=== PATIENT | female | born 1965 | race Caucasian/White ===

== ENCOUNTER 2022-07-08 11:01 | Outpatient (REF) | payer OTHER, SELFPAY ==
--- NOTE | ~2022-07-08 | XR_ITS ---
EXAMINATION: XR LUMBAR SPINE 6VW BENDING, XR SACROILIAC JOINT MIN 3V CLINICAL INFORMATION: Radiculopathy, lumbar region. Sacrococcygeal disorder COMPARISON: None TECHNIQUE: AP and lateral views of the lumbar spine with an additional coned down lateral spot view of the lumbosacral junction. Flexion and extension lateral views of the lumbar spine. Bilateral oblique views of the lumbar spine. AP and bilateral oblique views of the sacroiliac joints. FINDINGS: There is sclerosis on both sides of the left sacroiliac joint suggesting unilateral sacroiliitis. Sacroiliac joints are patent. No erosions seen. Hip joint spaces are maintained. No acute osseous abnormality. Right upper quadrant cholecystectomy clips. Nonobstructive abdominal bowel gas pattern. There are diminutive 12th ribs with 4 nonrib-bearing lumbar type vertebral bodies. Normal sagittal alignment. No malalignment induced with flexion or extension. There is loss of disc height at L5-S1 with mild anterior osteophytosis L3-4, L4-5, and L5-S1. There is lower lumbar facet arthropathy. No definite pars defects. XR/XR lumbar spine 6V w bending IMPRESSION: Sclerosis on both sides of the left sacroiliac joint suggesting unilateral sacroiliitis. Diminutive 12th ribs with 4 nonrib-bearing lumbar type vertebral bodies. Degenerative changes of the lumbar spine as described above.
--- NOTE | ~2022-07-08 | XR_ITS ---
EXAMINATION: XR LUMBAR SPINE 6VW BENDING, XR SACROILIAC JOINT MIN 3V CLINICAL INFORMATION: Radiculopathy, lumbar region. Sacrococcygeal disorder COMPARISON: None TECHNIQUE: AP and lateral views of the lumbar spine with an additional coned down lateral spot view of the lumbosacral junction. Flexion and extension lateral views of the lumbar spine. Bilateral oblique views of the lumbar spine. AP and bilateral oblique views of the sacroiliac joints. FINDINGS: There is sclerosis on both sides of the left sacroiliac joint suggesting unilateral sacroiliitis. Sacroiliac joints are patent. No erosions seen. Hip joint spaces are maintained. No acute osseous abnormality. Right upper quadrant cholecystectomy clips. Nonobstructive abdominal bowel gas pattern. There are diminutive 12th ribs with 4 nonrib-bearing lumbar type vertebral bodies. Normal sagittal alignment. No malalignment induced with flexion or extension. There is loss of disc height at L5-S1 with mild anterior osteophytosis L3-4, L4-5, and L5-S1. There is lower lumbar facet arthropathy. No definite pars defects. XR/XR sacroiliac joint min 3V IMPRESSION: Sclerosis on both sides of the left sacroiliac joint suggesting unilateral sacroiliitis. Diminutive 12th ribs with 4 nonrib-bearing lumbar type vertebral bodies. Degenerative changes of the lumbar spine as described above.
== END 2022-07-08 11:02 | disposition home or self-care (01) ==
LOC: HO.XRAY 11:01
PROVIDERS: PCP Internal Medicine; Visit Provider Nurse Practitioner Family
DX: M47.26 Other spondylosis with radiculopathy, lumbar region (principal); M53.3 Sacrococcygeal disorders, not elsewhere classified; M51.36 Other intervertebral disc degeneration, lumbar region; M46.1 Sacroiliitis, not elsewhere classified
CPT/HCPCS: 72114; 72202; 99202

== ENCOUNTER 2022-07-22 13:47 | Outpatient (REF) | payer OTHER, SELFPAY ==
--- NOTE | ~2022-07-22 | MR_ITS ---
EXAMINATION: MR LUMBAR SPINE WITHOUT CONTRAST CLINICAL INFORMATION: Lumbar radiculopathy. COMPARISON: Lumbar spine radiographs from 07/08/2022. TECHNIQUE: MRI of the lumbar spine was obtained using routine sequences without contrast. FINDINGS: Mild degenerative anterolisthesis of T12 on L1. Minimal degenerative retrolistheses of L3 on L4 and L5 on S1. Otherwise, normal anatomic alignment. Advanced degenerative disc disease at L5-S1. Moderate degenerative disc disease at T11-T12, T12-L1, and L3-L4. Mild degenerative disc disease at all additional lumbar levels. Associated mixed Modic type discogenic endplate changes including mild Modic type I discogenic edema at T12-L1 and L5-S1. No additional suspicious marrow edema. Small Schmorl's nodes at T11-T12, T12-L1, and L5-S1. Otherwise, the vertebral body heights are largely maintained. The conus medullaris terminates at the level of L1. The distal spinal cord is normal in appearance. No significant abnormalities of the paraspinal musculature. Limited evaluation of the intra-abdominal structures without significant abnormalities. The abdominal aorta is of normal contour and caliber. AXIAL SPINAL LEVELS: T12-L1: Mild diffuse disc bulge. There is mild bilateral facet joint arthropathy. There is no neural foraminal stenosis. There is no spinal canal stenosis. L1-L2: Normal annular contour. There is mild bilateral facet joint arthropathy. There is no neural foraminal stenosis. There is no spinal canal stenosis. L2-L3: Shallow diffuse disc bulge. There is moderate bilateral facet joint arthropathy. There is no neural foraminal stenosis. There is no spinal canal stenosis. L3-L4: Mild diffuse disc bulge. There is moderate right and mild left facet joint arthropathy. There is mild right and no left neural foraminal stenosis. There is narrowing of the subarticular zones with no overt spinal canal stenosis centrally. L4-L5: Mild to moderate diffuse disc bulge. There is moderate bilateral facet joint arthropathy. There is moderate left worse than right neural foraminal stenosis. There is stenosis of the subarticular zones with no overt spinal canal stenosis centrally. L5-S1: Moderate diffuse disc bulge. There is moderate bilateral facet joint arthropathy. There is moderate to severe bilateral neural foraminal stenosis. There is stenosis of the left worse than right subarticular zones with mild spinal canal stenosis centrally. MR/MR lumbar spine wo con IMPRESSION: Moderate multilevel degenerative spondyloarthropathy of the lumbar spine as described in detail above. Most notably, there is mild spinal canal stenosis at L5-S1. Narrowing/stenoses of the subarticular zones from L3-S1. Moderate to severe neural foraminal stenoses at L4-L5 and L5-S1.
== END 2022-07-22 13:48 | disposition home or self-care (01) ==
LOC: HO.MRI 13:47
PROVIDERS: PCP Internal Medicine; Visit Provider Nurse Practitioner Family
DX: M46.1 Sacroiliitis, not elsewhere classified (principal); M47.816 Spondylosis without myelopathy or radiculopathy, lumbar region; M51.36 Other intervertebral disc degeneration, lumbar region; M54.16 Radiculopathy, lumbar region
CPT/HCPCS: 72148

== ENCOUNTER → 2022-07-24 14:02 | Outpatient (BNVA) | payer OTHER, SELFPAY | PROVIDERS: PCP Internal Medicine; Visit Provider Nurse Practitioner Family | DX: Z13.89 Encounter for screening for other disorder (principal) ==

== ENCOUNTER 2022-08-14 11:18 | Day surgery (SDC) | payer OTHER, SELFPAY ==
[2022-08-07 15:13] VITALS: BMI 22.1
--- NOTE | ~2022-08-14 | FL_ITS ---
EXAMINATION: XR FLUOROSCOPY WITH IMAGES CLINICAL INFORMATION: Back pain, lumbar radiculopathy. COMPARISON: MR lumbar spine 07/22/2022. TECHNIQUE: Fluoroscopy Supervised By: Dr. Harvey Maria. Fluoroscopy Time: 0.7 minutes. Cumulative Dose: 17.2 mGy. DAP: 4.71 Gycm2. Images: 3. FINDINGS: There are spinal needles overlying the outer left L4, and L5 neural foramen. There is contrast seen in the respective nerve sheaths along with early transforaminal epidural extension. No visible vascular communication. There are degenerative disc changes again noted L5-S1. FL/FL guidance in OR IMPRESSION: Fluoroscopy for pain management procedures.
[2022-08-14] MEDS: Lactated Ringers 1,000 ML 50 ML IVCONT (12:01)
[2022-08-14 12:19] VITALS: BP 111/59; PULSE 81; RESP 18; TEMP 36.6; O2SAT 97
--- NOTE | 2022-08-14 12:40 | MHC.SHP ---
Pre-Procedural Eval Section A Date of Service: 08/14/22 The patient is an INPATIENT: No Changes since office visit: Yes Patient answered all questions The History & Physical has been completed within 30 days and I have reviewed it.: No Section B Chief Complaint: Radiculopathy,lumbar,spinal stenosis,lumbar Details of Present Illness: as above Relevant Family History (Specify if Yes): No Relevant Social History: Other (specify) Present Medications: None Medical History: No relevant PMH History of Previous Operations: No relevant previous surgery Allergies: Allergies Allergy/AdvReac Type Severity Reaction Status Date / Time benzocaine Allergy Unknown Unknown Verified 08/14/22 11:44 nicotine Allergy Unknown Unknown Verified 08/14/22 11:44 Codeine Allergy Unknown Unknown Uncoded 08/14/22 11:44 Review of Systems Sugical H&P ROS: Negative: Constitution, Cardiovascular, Respiratory, Neurological, Psychiatric, Hem-Onc, Allergic/Immunologic, Gastrointestinal, Genitourinary, Musculoskeletal, Integumentary, Endocrine and Eyes/Ears/Nose/Throat Exam Surgical H&P Exam: Normal: HEENT, Normal: Heart, Normal: Lungs, Normal: Extremities, Normal: Abdomen, Normal: Skin and Normal: Neurological Plan Diagnosis/Plan: Unchanged I have reviewed the history and physical and performed a pertinent physical examination on my patient. No changes have occurred unless specified. Time Spent With Patient Time: Total time managing care of this patient today __5__ minutes.
--- NOTE | 2022-08-14 12:47 | HO.ANESPROP2 ---
HPI - Anesthesia Eval Consult details Narrative: 57 F for transforaminal epidural steroid injection PMFSH Active Problems Active Problems: All Active Problems (Updated 07/24/22 @ 14:30 by SHINE Quinonez) Lumbar back pain with radiculopathy affecting left lower extremity (Acute) Lumbar spondylosis (Acute) Sacroiliitis (Acute) Muscle spasm of back (Acute) Lumbar spinal stenosis (Acute) Discogenic lumbar pain (Acute) Sacroiliac joint pain (Acute) Lumbar degenerative disc disease (Acute) Past Medical History Medical History H/O esophageal reflux Hx of duodenal ulcer Lumbar degenerative disc disease Nicotine dependence Polyarthralgia Sacroiliac joint pain Vitamin D deficiency Functional capacity: independent ambulation Family History Family history of problems with anesthesia: No Surgical History Surgical History (Updated 08/14/22 @ 12:26 by Delia Townsend RN) History of bilateral tubal ligation History of carpal tunnel release Hx of arthroscopic knee surgery Hx of colonoscopy History of Problems with Anesthesia: No Social History Social History Patient Tobacco Use Status: Current everyday Tobacco user Meds Allergies Allergy/AdvReac Type Severity Reaction Status Date / Time benzocaine Allergy Unknown Unknown Verified 08/14/22 11:44 nicotine Allergy Unknown Unknown Verified 08/14/22 11:44 Codeine Allergy Unknown Unknown Uncoded 08/14/22 11:44 Active Medications: Current Medications Lactated Ringer's (Lr) 1,000 mls @ 50 mls/hr IVCONT .Q20H JESSICA Last Admin: 08/14/22 12:01 Dose: 50 mls/hr Home Medications Medication Instructions Recorded Confirmed Last Taken Type cholecalciferol (vitamin D3) 50 50 mcg PO DAILY 07/08/22 08/14/22 Unknown History mcg (2,000 unit) tablet (Vitamin D3) tramadol 50 mg tablet 50 mg PO Q6H PRN pain 07/08/22 08/14/22 08/14/22 03:00 History cyanocobalamin (vitamin B-12) 1,000 mcg PO DAILY 07/24/22 08/14/22 Unknown History 1,000 mcg tablet (Vitamin B-12) nicotine (polacrilex) 2 mg buccal mg PO 07/24/22 Unknown History mini lozenge Exam Exam Date and Time: August 14, 2022 1247 Height,Weight and Vital Signs: Height 5 ft 3 in Weight 56.699 kg Last Vital Signs Temp 97.9 F 08/14/22 12:19 Pulse 81 08/14/22 12:19 Resp 18 08/14/22 12:19 BP 111/59 L 08/14/22 12:19 Pulse Ox 97 08/14/22 12:19 O2 Del Method 08/14/22 12:19 Airway Mallampati Class: III TM Dist: >3cm Neck ROM: Full Loose/Missing/Broken Teeth: Yes (Chipped upper front teeth ) Heart: S1,S2 Lungs: b/l breath sopunds Assessment and Plan Assessment Anesthesia Assessment: Anesthesia Plan Discussed and Chart Reviewed Final Anesthetic Review Family History of Problems with Anesthesia: No History of Problems with Anesthesia: No NPO: Yes ASA Class: II Final Preanesthetic Review: Meds/Allgs Chart Reviewed, Consent Obtained/Reviewed and Anes Risks/Benef Reviewed Patient Risk: Intermediate Procedure Risk: Intermediate Anesthetic Plan Anesthetic Plan: MAC: Disposition: Standard PACU
[2022-08-14 13:55] VITALS: BP 105/73; PULSE 80; RESP 18; TEMP 36.8; O2SAT 98
--- NOTE | 2022-08-14 14:01 | P.BOP_ITS ---
Brief Operative Note Date of Service: 08/14/22 Pre-op diagnosis: radiculopathy lumbar Post-op diagnosis: same Procedure: attampt at transforaminal L4- L5 and L5-S1 epidural transforaminal injection. Surgeon: Harvey Maria MD Was an Pullman Car Clerk used for this Procedure?: No Estimated blood loss (mL): 0 Condition: stable Disposition: PACU
--- NOTE | 2022-08-14 14:06 | W.PM.OPN ---
Operative Note Operative Note Date of Service: 08/14/22 Narrative: Attempt at transforaminal epidural steroid injection L4- L5 and L5- S1 on the left. ? Informed consent was thoroughly explained to the patient before the procedure.?The safety of doing the procedure awake was explained to the patient. The patient came to the operating room.?She was positioned prone on operating table with a pillow under his abdomen.? Time-out was performed delineating correct site and side of the procedure, nature of the injection, name and date of of the patient. ? The lower back of the patient was prepped with ChloraPrep and draped with sterile utility towels.? C-arm was brought over the operating field and sq picture of L4 was demonstrated on the screen.? The left side was chosen as the side of the injection.? Tilting machine ipsilateral to the left at the level of L4 1st the most prominent picture of the left pedicle was obtained on the screen.? 3 mm below the level of the lowest point of the pedicle projection to the skin small amount of lidocaine 1% 3-4 cc was injected to anesthetize the skin.?Upon injection of the lidocaine to the skin the patient became restless and moved her arms and hands contaminating the dressing. Additional pain medication was gradually titrated to the patient. The contaminated dressing was removed, contaminated poitner was discarded from the field and I changed my gloves. Patient explained to use her voice to express her concerns or complain on pain but avoid touching the sterile area with her hands. Chloroprep was used again to prepp the area and new sterile utility towels were applied. The C-arm was positioned again over the field and the skin wheal was raised again at the skin level with landmark orientations as above. After that 5 in 22 gauge Quincke point needle was inserted through the skin wheal and was advanced to the L4-5 foramina on anterior posterior, lateral and oblique views intermittently.? When tip of the needle entered L4-5 foramina most superior and posterior portion of the foramina projection on the lateral projection the C arm returned on the square image in the AP projection and injection of the contrast was attempted to be made. The patient started to cry about the pain going down her leg, the needle was withdrawn slightly however at this position the injection was not in the epidural space. The decision was made to abandon this level and try to parform one more level below because now the softr tissue positioned contrast would be obscuring the landmark silhouettes. After that the square image of the L5 vertebra was delineated on the screen. The left side was chosen as the side of the injection.? Tilting machine ipsilateral to the left at the level of L5 1st the most prominent picture of the left superior process of S1 was obtained on the screen.? Lateral border of the articular process of S1 was chosen as the target. the projection of the point interest to the skin was injected with lidocaine 2% and 22g 5 inch needle was inserted through the skin and was advanced to the process in tunnel vision fashion. When the needle gently contacted the bone it was deviated laterally advanced 2 mm deeper and deviated back medialy toward the foramina. On lateral view the needle appeared on the lowest portion of the foramina. Injection of the contrast was performed delineating epidural and perineural spread of the contrast. The patient again was complaining on severe pain radiating down the left leg. Attempt was made to inject the steroid Kenalog mixed with lidocaine 1% however after injection of the o.5 ml of the mixture and patient starting to cry about severe pain the injection was stopped and procedure was aborted ? Upon completion of the procedure sterile Band-Aids were applied. ? Patient was brought to the PACU, she was examined there and did not demonstrate any new neurological deficits, she stated that she only felt her previous pain which she experienced before the procedure and no new pain pattern was described.
[2022-08-14 14:10] VITALS: BP 115/69; PULSE 84; RESP 16; O2SAT 98
[2022-08-14 14:25] VITALS: BP 116/70; PULSE 78; RESP 16; O2SAT 99
[2022-08-14] MEDS: oxyCODONE HCl Immed Release 5 MG TABLET PO (14:30)
[2022-08-14] MEDS: Acetaminophen 325 MG TABLET 975 MG PO (14:31)
[2022-08-14 14:41] VITALS: BP 111/74; PULSE 73; RESP 16; TEMP 36.4; O2SAT 99
== END 2022-08-14 15:11 | disposition home or self-care (01) ==
PROVIDERS: PCP Internal Medicine; Visit Provider Anesthesiology
PROC: 3E0R33Z Introduction of Anti-inflammatory into Spinal Canal, Percutaneous Approach (ICD-10-PCS; CPT 64483; principal; 2022-08-14 13:10)
DX: M47.816 Spondylosis without myelopathy or radiculopathy, lumbar region (principal); G89.29 Other chronic pain; M54.59 Other low back pain; Z53.8 Procedure and treatment not carried out for other reasons; M51.36 Other intervertebral disc degeneration, lumbar region; M54.16 Radiculopathy, lumbar region; M46.1 Sacroiliitis, not elsewhere classified; M48.061 Spinal stenosis, lumbar region without neurogenic claudication; M62.830 Muscle spasm of back; M53.3 Sacrococcygeal disorders, not elsewhere classified; Z88.8 Allergy status to other drugs, medicaments and biological substances; R20.0 Anesthesia of skin; R20.2 Paresthesia of skin; F17.210 Nicotine dependence, cigarettes, uncomplicated; E55.9 Vitamin D deficiency, unspecified
CPT/HCPCS: 64483; 64484; J2250; J2795; J3010; J3301; Q9965

== ENCOUNTER → 2022-09-17 12:56 | Outpatient (BNVA) | payer OTHER, SELFPAY | PROVIDERS: PCP Internal Medicine; Visit Provider Anesthesiology | DX: M46.1 Sacroiliitis, not elsewhere classified (principal); M51.36 Other intervertebral disc degeneration, lumbar region; M47.816 Spondylosis without myelopathy or radiculopathy, lumbar region; M54.16 Radiculopathy, lumbar region; M62.830 Muscle spasm of back; M48.061 Spinal stenosis, lumbar region without neurogenic claudication; M54.59 Other low back pain | CPT/HCPCS: 99212 ==

== ENCOUNTER 2022-10-23 | Outpatient (REF) | payer OTHER, SELFPAY ==
[2022-10-22 10:59] VITALS: BMI 23.6
--- NOTE | 2022-10-23 | ECG_ITS ---
Test Reason : PREOP Blood Pressure : / mmHG Vent. Rate : 075 BPM Atrial Rate : 075 BPM P-R Int : 152 ms QRS Dur : 076 ms QT Int : 398 ms P-R-T Axes : 058 069 044 degrees QTc Int : 444 ms Normal sinus rhythm Normal ECG No previous ECGs available Referred By: Jackie Malave Electronically Signed By:AVEL ALCOCER
[2022-10-23 13:08] VITALS: BP 127/75; PULSE 83; RESP 16; O2SAT 98
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
[2022-10-23 13:58] LABS: Hematocrit 45.8 % (37.0-47.0); Hemoglobin 15.2 g/dl (12.0-16.0); Mean Corpuscular HGB Conc 33.2 g/dl (31.0-35.0); Mean Corpuscular Volume 90.5 fL (80.0-98.0); Mean Platelet Volume 10.9 fL (9.4-12.3); Platelet Count 236 X10*3/uL (160-400); Red Blood Count 5.06 X10*6/uL (4.20-5.50); Red Cell Distribution Width 12.6 % (11.0-16.0); White Blood Count 4.8 X10*3/uL (4.8-10.8)
[2022-10-23 14:40] LABS: Anion Gap 14 (12-20); Blood Urea Nitrogen 14 mg/dL (9-16); Carbon Dioxide 27 mmol/L (22-29); Chloride 103 mmol/L (96-108); Creatinine Clr Calc Pharmacy 61.8; Estimated Glomerular Filt Rate > 60; Glucose Random 97 mg/dL (60-115); Potassium 4.6 mmol/L (3.3-5.1); Sodium 139 mmol/L (135-145)
== END 2022-10-23 00:01 | disposition home or self-care (01) ==
LOC: HO.PAT
PROVIDERS: Nurse Practitioner; PCP Internal Medicine; Visit Provider Neurological Surgery
DX: Z01.818 Encounter for other preprocedural examination (principal); M53.3 Sacrococcygeal disorders, not elsewhere classified; Z72.0 Tobacco use
CPT/HCPCS: 36415; 80048; 85027; 93005

== ENCOUNTER 2023-04-08 14:16 | Outpatient (REF) | payer OTHER, SELFPAY ==
[2023-04-15 00:14] LABS: Cotinine, U <2 ng/mL; Nicotine, U <2 ng/mL
== END 2023-04-08 14:17 | disposition home or self-care (01) ==
LOC: HO.LAB 14:16
PROVIDERS: PCP Internal Medicine; Visit Provider Physician Assistant
DX: M48.061 Spinal stenosis, lumbar region without neurogenic claudication (principal)
CPT/HCPCS: 80323

== ENCOUNTER 2023-08-06 14:40 | Outpatient (REF) | payer OTHER, SELFPAY ==
[2023-08-06 15:57] LABS: Erythrocyte Sedimentation Rate 10 MM/HR (0-20)
[2023-08-07 08:01] LABS: Syphilis Screen Nonreactive (Nonreactive)
[2023-08-07 17:33] LABS: Lyme Abs Screen <0.90 index
[2023-08-07 17:47] LABS: Prolactin 2.6 ng/mL
[2023-08-11 15:29] LABS: Anti Nuclear Antibody Screen NEGATIVE (NEGATIVE)
== END 2023-08-06 14:41 | disposition home or self-care (01) ==
LOC: HO.LAB 14:40
PROVIDERS: PCP Internal Medicine; Visit Provider Psychiatry & Neurology Neurology
DX: R51.9 Headache, unspecified (principal); D35.2 Benign neoplasm of pituitary gland
CPT/HCPCS: 36415; 82550; 84146; 85652; 86038; 86617; 86618; 86780

== ENCOUNTER 2024-03-04 13:10 | Outpatient (AMB) | payer OTHER, SELFPAY ==
--- NOTE | 2024-03-04 13:13 | A.SPINEOV_ITS ---
Intake Visit Reasons: discuss sx Intake Note: Ms. Hassan is here today to Discuss Surgery Packager And Strapper Required: No Allergies adhesive Allergy (Severe, Verified 10/22/22 10:50) tachycardia, from Nicotine patch adhesive benzoyl peroxide Allergy (Severe, Verified 10/22/22 10:50) Facial Swelling bee pollen [bee stings] Allergy (Verified 06/16/23 14:39) Unknown Codeine Allergy (Severe, Uncoded 10/22/22 10:50) itchy eyes and swelling Assessment & Plan Assessment & Plan (1) Sacroiliitis: Code(s): M46.1 - Sacroiliitis, not elsewhere classified Category: Medical Plan Mrs Hassan is here in follow-up. She has an extensive history of SI joint flare-ups on the left side. This is well documented from my note at the [facility] and all the details of her issues are well documented there.. We had originally planned to doing a left SI joint fusion on her last October 2022 but because she was still smoking at the time her insurance denied it. She ultimately quit smoking, she was rescheduled for later in the year but then an issue with an EKG came up. She had a cardiac clearance done and is now ready to move ahead with the surgery. Her days remain filled with agony. She has severe left buttock pain. We have worked this up, she responds beautifully to the SI joint injections. Dr. Sandoval did want a few months ago again that did help her pain. However, she spends most of her days lying on her right side in bed. She does get some pain which shoots down the left leg but the primary symptom is in the left buttock. She continues to have all the positive physical exam findings you would expect with the patient with SI joint pain including positive MAYDA test, finger Adrian, positive [place]. She sits on her right buttock during the whole office visit because she can not sit in a neutral position. She has good strength throughout her lower extremities. We will plan on doing her surgery at the end of March. All pertinent risks and benefits were discussed. She will get a set of crutches to use after surgery. She understands that the overall benefit risk of surgery is 60-70% improvement in her pain. Total amount of time spent in this visit was 20 minutes in discussion of symptoms, previous MRI [place] imaging results and subsequent plan of care Neo Romo MD,PhD [facility] Coding Level of Care Code Est Pt Level 3 (42747) Diagnoses Sacroiliitis M46.1
== END 2024-03-04 15:18 | disposition home or self-care (01) ==
PROVIDERS: PCP Internal Medicine; Visit Provider Physician Assistant
DX: M46.1 Sacroiliitis, not elsewhere classified (principal)
CPT/HCPCS: 99213

== ENCOUNTER → 2024-03-04 13:10 | Outpatient (BNVA) | payer OTHER, SELFPAY | PROVIDERS: PCP Internal Medicine; Visit Provider Physician Assistant | DX: M46.1 Sacroiliitis, not elsewhere classified (principal) | CPT/HCPCS: 99212 ==